=== PATIENT | male | born 1965 | race Caucasian/White ===

== ENCOUNTER 2016-09-24 07:37 | Inpatient (IN) | payer BC ==
[2016-09-18 17:43] LABS: HEMOGLOBIN 13.6 g/dL (13.6-17.8)
[2016-09-18 17:45] LABS: HEMATOCRIT 39.1 % (40.0-51.0)
[2016-09-18 17:58] LABS: BUN (BLOOD UREA NITROGEN) 6 MG/DL (6-23); CALCIUM, SERUM 9.4 MG/DL (8.5-10.4); CHLORIDE, SERUM 93 MMOL/L (96-112); CO2 (CARBON DIOXIDE) 28 MMOL/L (24-34); CREATININE 0.74 MG/DL (0.70-1.30); GFR AFRICAN AMERICAN 126 ML/MIN (>=60); GFR NON AFRICAN AMERICAN 108 ML/MIN (>=60); GLUCOSE, SERUM 85 MG/DL (60-99); SODIUM, SERUM 130 MMOL/L (135-148)
[2016-09-18 18:01] LABS: POTASSIUM, SERUM 4.4 MMOL/L (3.5-5.3)
--- NOTE | ~2016-09-24 | OP ---
Record Of Operation [facility] [address] [place]. [address] NAME: ALFRED SALDANA : 69 STATUS : ADM IN PAT#: [id number] AGE: 51 ADM/REG DATE : 09/24/16 MR#: [id number] REPORT SERV DATE: 09/24/16 DICTATED BY: ANKIT MCCARTHY II DATE: 09/24/16 REPORT STATUS : Draft TRANSCRIBED BY: MODL DATE: 09/24/16 DATE OF PROCEDURE: 09/24/2016 ATTENDING CO-SURGEON: Ankit Mccarthy MD SECOND CO-SURGEON: Yair Christianson MD MOTEL FRONT DESK ATTENDANT: Daniel Mcdonnell. PREOPERATIVE DIAGNOSIS: Severe degenerative disk disease with non fusion at L5-S1 with previous placement of placement of interbody device. POSTOPERATIVE DIAGNOSIS: Severe degenerative disk disease with non fusion at L5-S1 with previous placement of placement of interbody device. PROCEDURES: 1. Anterior exposure of the lumbar spine. 2. Anterior lumbar interbody fusion with instrumentation at L5-S1. ANESTHESIA: General. ESTIMATED BLOOD LOSS: Less than 50 mL. Please note, I am a co-surgeon on the case. I am dictating a portion of the note. The remaining portion is found in a note by Dr. Christianson. DETAILS OF PROCEDURE: The patient was taken to the operating room. placed in supine position on the operating table. General anesthesia was achieved. A protective padding and a lumbar roll was placed. We then prepped and draped in sterile fashion. I made an incision in the midline directly over L5-S1 and opened the rectus sheath. There was significant scar tissue present within the preperitoneum. We gently dissected into the retroperitoneum and we identified previously placed mesh for repair of an inguinal hernia. We carefully teased the peritoneum from this and there were no adherent intestines. Once we were able to free this from the mesh, we continued blunt dissection into the retroperitoneum and we exposed the iliac bifurcation. The middle sacral vessels were then identified and ligated with 2-0 silk suture. With continued dissection, we completely mobilized the vessels and exposed L5-S1, and we marked this with fluoroscopy. Removal of interbody device, diskectomy, and fusion with placement of the instrumentation was performed. Please see Dr. Christianson's notes for details of this. Once x-ray confirmed adequate placement, we inspected the retroperitoneum. It was hemostatic. The ureter was intact. We removed the retractors and allowed the abdominal contents to return to their normal anatomic position. We then closed using running PDS and interrupted Vicryl. The skin was closed with Monocryl. At the end of procedure, the patient was stable. He tolerated it well. Record Of Operation [facility] [address] [place] [address] NAME: ALFRED SALDANA : 69 STATUS : ADM IN [facility]#: [id number] AGE: 51 ADM/REG DATE : 09/24/16 MR#: [id number] REPORT SERV DATE: 09/24/16 DICTATED BY: ANKIT MCCARTHY II DATE: 09/24/16 REPORT STATUS : Draft TRANSCRIBED BY: CADE DATE: 09/24/16 JENNA/CADE Ankit Mccarthy II, M.D. / [id number] CC: Yair Christianson II, M.D.
--- NOTE | ~2016-09-24 | OP ---
Record Of Operation [facility] [address] [place]. [address] NAME: ALFRED SALDANA : 69 STATUS : ADM IN PAT#: [id number] AGE: 51 ADM/REG DATE : 09/24/16 MR#: [id number] REPORT SERV DATE: 09/26/16 DICTATED BY: TALA CHRISTIANSON II DATE: 09/26/16 REPORT STATUS : Draft TRANSCRIBED BY: MODL DATE: 09/26/16 DATE OF PROCEDURE: 09/24/2016 PREOPERATIVE DIAGNOSES: 1. L5-S1 nonunion. 2. 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 POSTOPERATIVE DIAGNOSES: 1. L5-S1 nonunion. 2. 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 PROCEDURES: Stage I (anterior): 1. L5-S1 anterior interbody arthrodesis. 2. Application of prosthetic device, L5-S1. 3. Anterior instrumentation, L5-S1. Stage II (posterior): 1. Posterior revision facetectomy for decompression of the L5 and S1 nerve roots. 2. Posterolateral arthrodesis L5-S1. 3. Posterior non-segmental instrumentation. 4. Use of allograft substitute and bone morphogenic protein. 5. Use of the microscope and stereotactic spinal imaging. SURGEON: Tala Christianson M.D. (Dr. Sinclair was the co-surgeon for the anterior interbody arthrodesis). FLUIDS: 1300 mL LR. ESTIMATED BLOOD LOSS: 100 mL. DRAINS: One drain. COMPLICATIONS: None. ANTIBIOTIC: Preoperatively. PREOPERATIVE HISTORY: This is a friendly 51-year-old gentleman who is well known to me. 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 He underwent a successful TLIF last year. His back and leg pains were significantly improved. Unfortunately, he then began to have a downturn and he began having increasing back and leg pain. He appeared to have on MRI a significant osteolysis reaction along the endplates at L5-S1 consistent with bone morphogenic protein reaction. Ultimately, his imaging did not show a solid arthrodesis but also showed some endplate erosion consistent with the endplate osteolysis. We discussed the pros and cons of surgery. We discussed that if he returned to surgery we would not use bone morphogenic protein on the anterior aspect. We also discussed the surgery itself as well as the rates of success versus failure and the Record Of Operation [facility] [address] [place]. [address] NAME: ALFRED SALDANA : 69 STATUS : ADM IN PAT#: [id number] AGE: 51 ADM/REG DATE : 09/24/16 MR#: [id number] REPORT SERV DATE: 09/26/16 DICTATED BY: TALA CHRISTIANSON II DATE: 09/26/16 REPORT STATUS : Draft TRANSCRIBED BY: MODL DATE: 09/26/16 risks of the anterior-posterior approach and he and his wished to proceed. DESCRIPTION OF PROCEDURE: After informed consent was obtained, the patient was brought to the operating room at his request and general anesthesia achieved. He was placed in supine position. The abdomen was prepped and draped in a sterile fashion. Dr. Sinclair then performed retroperitoneal approach for L5-S1. The proper level was radiographically confirmed. Under loupe magnification head lamp, we then incised the anulus followed by diskectomy. The prosthetic device was identified. It was loose. This was now removed from the disk space. The endplates were then denuded of additional cartilage. The fibrous nonunion was now removed with the curettes and the pituitary rongeurs. The endplates were now identified as having punctate bleeding bone. Fortunately, there was not severe erosion or cavitation of the endplates. This was overall mild. At this point, the area was now irrigated followed by trialing. The appropriate size prosthetic device was placed. This contained allograft substitute. The prosthetic device was then successfully placed into the disk space. Also please note, there was obvious motion at the L5-S1 disk space level consistent with a nonunion as well. Next, the anterior instrumentation was chosen. Please note, this was a separate plate and screw construct with two screws placed into L5 and S1. Next, the multiplanar imaging confirmed acceptable placement of the implants. At this point, Dr. Sinclair performed retroperitoneal closure followed by skin closure. Standard dressings were applied. The patient then turned to the prone position. The back was prepped and draped in a sterile fashion. The stereotactic spinal pin was placed into the right iliac crest followed by completion of the intraoperative CT scan. Stereotactic guidance was then used throughout the case. Next, the incision was then made on the left side. The quadrant retractor was placed and the microscope brought into place. The previous hardware was identified. The jose martin was removed so as to facilitate better visualization. Interestingly, we did encounter significant scarring about the laminectomy site. There was copious scarring present. This took some amount of time to work through the anatomy. The stereotactic guidance was very useful. Ultimately, we were able to identify the inferior aspect of the L5 pedicle. The L5 nerve root was encased in a fairly thick scar. The S1 nerve root was then also identified. Also significant scarring about it. We ultimately were able to identify the previous TLIF site. Again, there appeared to be just severe scarring around the area. Overall, it did appear to be responsible for mass effect upon both nerve roots. Both nerve roots again were acceptably decompressed as best as possible from the removal of scar standpoint. The area was now irrigated. At this point, the area was now irrigated. The previous applied bone graft materials had not consolidated. There was still again evidence of a nonunion at this juncture. The transverse process was decorticated as was the sacral ala. Additional allograft substitute and a small portion of BMP was placed along the posterior lateral gutter. Next, a deep drain was placed. The jose martin was reassembled and final tightening performed. We did not have to use new hardware. At this point, standard closure was performed, and the patient was then extubated and transferred to PACU in stable condition. Also, I had a very long conversation with his before and after surgery. Following the surgery, I gave her full Record Of Operation [address] [address] NAME: ALFRED SALDANA : 69 STATUS : ADM IN [facility]#: [id number] AGE: 51 ADM/REG DATE : 09/24/16 MR#: [id number] REPORT SERV DATE: 09/26/16 DICTATED BY: TALA CHRISTIANSON II DATE: 09/26/16 REPORT STATUS : Draft TRANSCRIBED BY: MODL DATE: 09/26/16 details of the surgery as well as the prospects of recovery and improvement. JULIO CESAR/CADE Tala Christianson II, M.D. / [id number] CC: Flaca Montemayor II, M.D.
--- NOTE | ~2016-09-24 | DS ---
Discharge Summary [facility] [address] [place]. [address] NAME: ALFRED SALDANA : 69 STATUS : DIS IN PAT#: [id number] AGE: 51 ADM/REG DATE : 09/24/16 MR#: [id number] REPORT SERV DATE: 10/09/16 DICTATED BY: TALA CHRISTIANSON II DATE: 10/08/16 REPORT STATUS : Draft TRANSCRIBED BY: MODTanya DATE: 10/08/16 Data Collection from hospitalization DISCHARGE DIAGNOSES: 1. L5-S1 nonunion. 2. 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 3. Hypertension. 4. Anemia. 5. Anxiety and depression. 6. Gastrointestinal ulcers. 7. Hernia of the abdominal cavity. 8. Irritable bowel syndrome. 9. Tachycardia. 10.History of heavy alcohol consumption. CONSULTATIONS: Dr. Ankit Sinclair. PROCEDURES: 1. Anterior exposure of the lumbar spine, 09/24/2016. 2. Stage I (anterior) L5-S1 anterior interbody arthrodesis application of prosthetic device, L5-S1. Anterior instrumentation, L5-S1. Stage II (posterior) -posterior revision facetectomy for decompression of the L5 and S1 nerve roots. Posterolateral arthrodesis, L5-S1. Posterior nonsegmental instrumentation, use of allograft substitute and bone morphogenic protein, use of microscope and stereotactic spinal imaging, 09/24/2016. PATHOLOGY: Spine/lumbar bone tissue and hardware - fibrocartilage consistent with intervertebral disk. Benign bone fragments with granulation tissue and reparative changes. Orthopedic hardware - see gross description. DISCHARGE MEDICATIONS: Zovirax 400 mg twice a day, Coreg 6.25 mg twice a day, Valium 5 mg every six hours as needed, Neurontin 600 mg every day at bedtime, Regina 10/325 one tablet every four hours as needed - not with oxycodone and MS Contin, Prinivil 20 mg twice a day, MS Contin 30 mg every 12 hours as instructed, Prilosec 40 mg every day at bedtime, Roxicodone 10 mg every four hours as needed and as instructed, Protonix 20 mg every morning, and Flomax 0.4 mg at bedtime. CONDITION ON DISCHARGE: Stable. DISPOSITION: The patient was discharged home on a regular diet with activities as instructed. He would follow up with me, 10/17/2016. HOSPITAL COURSE: This is a 51-year-old man who complains of lumbar spine-related symptoms. The symptoms are located in the low back with radiation into the left lower extremity and occasionally the right lower extremity with associated numbness and tingling. He reported a Discharge Summary [place] [id number] [facility] [place]. [address] NAME: ALFRED SALDANA : 69 STATUS : DIS IN PAT#: [id number] AGE: 51 ADM/REG DATE : 09/24/16 MR#: [id number] REPORT SERV DATE: 10/09/16 DICTATED BY: TALA CHRISTIANSON II DATE: 10/08/16 REPORT STATUS : Draft TRANSCRIBED BY: MODL DATE: 10/08/16 pain level of 6 on a scale of 0 to 10. The patient has L5-S1 nonunion and recurrent left lower extremity radiculopathy with recurrent stenosis. Treatment options were discussed, and it was elected to proceed with surgical intervention. He was admitted to the hospital at this time for further evaluation and treatment. Upon admission, he was taken to the operating room where he underwent the above-mentioned procedure by myself and Dr. Ankit Sinclair. He tolerated this well, and there were no complications. On postop day #1, he was stable. He was encouraged to mobilize. Over the next couple of days, he continued to progress. He was evaluated by Physical Therapy. He was passing flatus. His abdomen was soft. Mckee catheter and TERRY drain remained in place. He declined a suppository. On 09/28/2016, he was alert and cooperative. Discharge instructions were given. Due to his improved and stable condition, he was discharged home with the above-stated instructions. Information collected by: Katt Boone I submit the above information as my discharge summary. TG/CADE Tala Christianson II, M.D. / [id number] CC: Flaca Montemayor II, M.D.
[~2016-09-24 07:37] MED LIST: B COMPLETE PO; COREG6 PO; DIL4TAB PO; FLOMAX4 PO; FOLIC PO; MSCONT15 PO; MULTIPLE VIT PO; NEUR300 PO; NORCO1 TA1 PO; NORCO1 TAB PO; PRILOSEC40 MG PO; PRIN20 PO; PROTONIX PO; PROTONIX20 MG PO; V2 PO; X5 PO; ZOVIRAX400 MG PO
[2016-09-28] MEDS ORDERED: V5 PO (14:47)
[2016-09-28] MEDS ORDERED: MSCONTIN PO (14:47)
[2016-09-28] MEDS ORDERED: OXYCOD PO (14:47)
== END 2016-09-28 17:12 | disposition home or self-care (01) | DRG 455 ==
LOC: SDC/OF 07:37 → 3SO 15:19
PROVIDERS: Orthopaedic Surgery; Surgery
PROC: 0SG30A0 Fusion of Lumbosacral Joint with Interbody Fusion Device, Anterior Approach, Anterior Column, Open Approach (ICD-10-PCS; principal; 2016-09-24 09:00)
PROC: 0SG0071 Fusion of Lumbar Vertebral Joint with Autologous Tissue Substitute, Posterior Approach, Posterior Column, Open Approach (ICD-10-PCS; 2016-09-24 09:00)
PROC: 4A11X4G Monitoring of Peripheral Nervous Electrical Activity, Intraoperative, External Approach (ICD-10-PCS; 2016-09-24 09:00)
DX: M96.0 Pseudarthrosis after fusion or arthrodesis (principal); M51.17 Intervertebral disc disorders with radiculopathy, lumbosacral region
CPT/HCPCS: 80048; 82962; 85014; 85018; 87641; 88300; 88304; 88311; 93005; 97110-GP; 97116-GP; 97161-GP; 97530-GP; A9270-GY; C1713; J0690; J1644; J2250; J2370; J2405; J2710; J3010; J3370